=== PATIENT | female | born 1990 | race Caucasian/White ===

== ENCOUNTER 2018-09-26 18:23 | Inpatient (IN) | payer MEDICAID ==
[~2018-09-26] VITALS: Ht 170.2 cm; Wt 77.6 kg
[2018-09-26 18:55] LABS: BASOPHIL % 0.4 % (0-2); PLATELET COUNT 296 x10^3mcL (130-400); RED CELL DISTRIBUTION WIDTH 13.2 % (11.5-14.5)
[2018-09-26 19:09] LABS: ALBUMIN 3.6 g/dL (3.4-5.0); ALKALINE PHOSPHATASE 126 U/L (46-116); ALT/SGPT 95 U/L (14-59); AST/SGOT 132 U/L (15-37); CALCIUM 9.2 mg/dL (8.5-10.1); CARBON DIOXIDE 26.7 mmol/L (21-32); CHLORIDE SERUM 102 mmol/L (98-107); GFR1 > 60 mL/min; GLUCOSE SERUM 149 mg/dL (74-106); LIPASE 156 IU/L (73-393); SODIUM SERUM 139 mmol/L (136-145); TOTAL PROTEIN, SERUM 7.8 g/dL (6.4-8.2)
[2018-09-26 19:11] LABS: POTASSIUM SERUM 2.9 mmol/L (3.5-5.1)
[2018-09-26 21:09] LABS: PHOSPHOROUS 1.6 mg/dL (2.5-4.9)
[2018-09-26 21:11] LABS: CHOLESTEROL/HDL RATIO 6.3
[2018-09-26 21:19] LABS: T3 TOTAL 1.57 ng/mL
[2018-09-26 21:24] LABS: FREE T4 0.98 ng/dL (0.76-1.46); FREE THYROXINE INDEX 2.7 ug/dL (1.4-4.5); T4(THYROXINE) 8.8 ug/dL (4.7-13.3)
[2018-09-26 21:40] VITALS: BP 96/52
[2018-09-26 21:42] VITALS: Ht 170.2 cm; Wt 77.6 kg
[2018-09-26 21:48] VITALS: BP 96/52
[2018-09-27 00:20] LABS: microscopic required? YES; urine erythrocyte TRACE (NEGATIVE)
[2018-09-27 00:27] LABS: AMPHETAMINE QUAL UR NONE DETECTED (See below)
[2018-09-27 04:36] LABS: BASOPHIL % 0.4 % (0-2); PLATELET COUNT 276 x10^3mcL (130-400); RED CELL DISTRIBUTION WIDTH 13.7 % (11.5-14.5)
[2018-09-27 04:42] LABS: CALCIUM 8.6 mg/dL (8.5-10.1); CARBON DIOXIDE 27.5 mmol/L (21-32); CHLORIDE SERUM 108 mmol/L (98-107); CREATININE SERUM 0.8 mg/dL (0.6-1.0); GFR1 > 60 mL/min; GLUCOSE SERUM 125 mg/dL (74-106); PHOSPHOROUS 3.8 mg/dL (2.5-4.9); POTASSIUM SERUM 4.7 mmol/L (3.5-5.1); SODIUM SERUM 143 mmol/L (136-145)
[2018-09-27 09:50] VITALS: BP 86/39
[2018-09-27 13:39] VITALS: BP 86/39
== END 2018-09-27 14:20 | disposition home or self-care (01) | DRG 203 ==
LOC: ED 18:23 → MU 20:25
PROVIDERS: Emergency Medicine; Internal Medicine
DX: M94.0 Chondrocostal junction syndrome [Tietze] (principal); N17.0 Acute kidney failure with tubular necrosis; E87.6 Hypokalemia; E78.5 Hyperlipidemia, unspecified; R74.0 Nonspecific elevation of levels of transaminase and lactic acid dehydrogenase [LDH]; R73.03 Prediabetes; E83.39 Other disorders of phosphorus metabolism; R80.9 Proteinuria, unspecified; Z98.890 Other specified postprocedural states; Z68.26 Body mass index [BMI] 26.0-26.9, adult
CPT/HCPCS: 83880; 84439; J1885; J2405; J3010; J3480; J7030; Q0092; Q9967